=== PATIENT | female | born 1970 | race Caucasian/White ===

== ENCOUNTER 2019-01-21 06:05 | Emergency (ER) | payer OTHER ==
[~2019-01-21] VITALS: Ht 167.6 cm; Wt 151.0 kg
--- NOTE | 2019-01-21 06:14 | NUR ---
PT RECEIVED BIB RESCUE 83 FROM WORK ENDORSED BY EMT: SLIP AND FALL FROM SOAP ON FLOOR THIS MORNING, PT FELL ON HER SIDE AND HIT HER KNEES. C/O RIGHT KNEE PN PT DENIES HITTING HEAD, NO LOC, ABLE TO SPEAK CLEAR AND COMPLETE SENTENCES DENIES FEVERS/CHILLS/NVD, +H/O HTN AND DM DENIES SURGERY NOR PREVIOUS TRAUMA TO [facility] KNEE
[2019-01-21] MEDS ORDERED: IBUPROFEN 600 MG TABLET PO ONE (06:45)
[2019-01-21] MEDS ORDERED: IBUPROFEN 600 MG TABLET ONE (06:50)
--- NOTE | 2019-01-21 07:11 | NUR ---
report given to jasbir putnam.
[2019-01-21] MEDS ORDERED: predniSONE 20 MG TABLET ONE (08:04)
[2019-01-21] MEDS ORDERED: HYDROCODONE/APAP 5-325MG TABLET PO ONE (08:15)
--- NOTE | 2019-01-21 08:21 | NUR ---
Patient discharged to home in stable conditon with crutches. Written and verbal after care instructions given. Patient verbalizes understanding of instructions.
== END 2019-01-21 08:21 | disposition home or self-care (01) ==
LOC: ER 06:07
DX: S70.01XA Contusion of right hip, initial encounter (principal); S83.91XA Sprain of unspecified site of right knee, initial encounter; E11.9 Type 2 diabetes mellitus without complications; W01.0XXA Fall on same level from slipping, tripping and stumbling without subsequent striking against object, initial encounter; Y93.89 Activity, other specified; Y92.89 Other specified places as the place of occurrence of the external cause; Y99.0 Civilian activity done for income or pay
CPT/HCPCS: 73502; 73562; 99283; J7512; A4663